=== PATIENT | male | born 1995 | race Caucasian/White ===

== ENCOUNTER 2019-04-01 20:08 | Emergency (ER) | payer MEDICAID ==
[~2019-04-01] VITALS: Ht 185.4 cm; Wt 173.2 kg
[2019-04-01 20:38] VITALS: Ht 185.4 cm; Wt 173.2 kg
[2019-04-01] MEDS ORDERED: VOLTAREN75 MG PO (21:32)
[2019-04-01 21:53] VITALS: BP 142/85
== END 2019-04-01 21:54 | disposition home or self-care (01) ==
LOC: D.ER 20:08
DX: S69.91XA Unspecified injury of right wrist, hand and finger(s), initial encounter (principal); W22.8XXA Striking against or struck by other objects, initial encounter; Y93.9 Activity, unspecified; Y92.9 Unspecified place or not applicable